=== PATIENT | female | born 1960 | race Caucasian/White ===

== ENCOUNTER 2022-12-25 10:28 | Day surgery (SDC) | payer OTHER ==
[~2022-12-25] VITALS: Ht 154.9 cm; Wt 74.8 kg
[2022-12-25] MEDS ORDERED: LIDOCAINE 2% 100 MG/5 ML UJET TP ONE ×2 (11:58→15:05)
[2022-12-25] MEDS ORDERED: fentaNYL citrate 0.05 MG/ML VIAL ONE (11:58)
[2022-12-25] MEDS ORDERED: fentaNYL citrate 0.05 MG/ML VIAL IVP ONE (15:05)
== END 2022-12-25 13:00 | disposition home or self-care (01) ==
LOC: MDS 10:28 → MMU 10:29 → MDS 13:00
PROVIDERS: ATTEND Internal Medicine Gastroenterology
DX: Z12.11 Encounter for screening for malignant neoplasm of colon (principal); K63.5 Polyp of colon; K57.30 Diverticulosis of large intestine without perforation or abscess without bleeding; E78.00 Pure hypercholesterolemia, unspecified; Z79.899 Other long term (current) drug therapy
CPT/HCPCS: 45385; J3010